=== PATIENT | male | born 1970 | race African-American/Black ===

== ENCOUNTER 2018-12-22 08:55 | Emergency (ER) | payer SELFPAY ==
--- NOTE | 2018-12-22 09:02 | Emergency Department Record ---
History of Present Illness - General Stated Complaint: PAIN IN GROIN Time Seen by Provider: 12/22/18 08:57 Source: Patient Mode of Arrival: Ambulatory Limitations: No limitations - History of Present Illness Initial Comments: 48 yo male presents after a lifting injury at work yesterday. He was lifting a heavy piece of sheet metal (69 pounds) and felt a sharp pain. No current swelling, nausea, vomiting or diarrhea. He is able to urinate. No hematuria. He had prior hernia surgery 6 times when younger. He does frequently lift at work. When he lifted today the pain returned. It is sharp on the left. No back pain. No obvious bulge or current hernia. MD Complaint: Abdominal pain -: Days(s) Location: LLQ Radiation: LLQ Migration to: LLQ Quality: Sharp Consistency: Constant Improves With: Rest Worsens With: Movement, Other (Lifting) Context: Other Associated Symptoms: Denies other symptoms - Related Data Home Medications Medication Instructions Recorded Confirmed Last Taken Amlodipine Besylate [Norvasc] 10 mg PO DAILY 12/22/18 12/22/18 12/21/18 Metoprolol Tartrate 25 mg PO DAILY 12/22/18 12/22/18 12/21/18 Allergies Allergy/AdvReac Type Severity Reaction Status Date / Time cyclobenzaprine Allergy HIVES Verified 12/22/18 09:07 Penicillins Allergy ANAPHYLAXIS Verified 12/22/18 09:07 Review of Systems Constitutional: Denies: Chills, Fever, Malaise, Weakness Eyes: Denies: Eye discharge, Vision change ENT: Denies: Congestion, Throat pain Respiratory: Denies: Cough Cardiovascular: Denies: Chest pain, Palpitations, Syncope Endocrine: Denies: Fatigue Gastrointestinal: Reports: Abdominal pain. Denies: Diarrhea, Nausea, Vomiting Genitourinary: Denies: Dysuria, Frequency, Hematuria Musculoskeletal: Denies: Arthralgia, Back pain, Joint swelling, Myalgia, Neck pain Skin: Denies: Bruising, Change in color, Rash Neurological: Denies: Headache, Numbness, Tingling, Weakness Psychiatric: Denies: Anxiety Hematological/Lymphatic: Denies: Easy bleeding, Easy bruising Physical Exam - General General Appearance: Alert, Oriented x3, Cooperative, No acute distress Limitations: No limitations - Head Head exam: Atraumatic, Normal inspection - Eye Eye exam: Normal appearance, PERRL. negative: Conjunctival injection, Scleral icterus - ENT ENT exam: Normal exam Ear exam: Normal external inspection Nasal Exam: Normal inspection Mouth exam: Normal external inspection - Neck Neck exam: Normal inspection - Respiratory Respiratory exam: Normal lung sounds bilaterally. negative: Respiratory distre ss - Cardiovascular Cardiovascular Exam: Regular rate, Normal rhythm, Normal heart sounds - GI/Abdominal GI/Abdominal exam: Soft, Tenderness (focal reproducible tender at area of external inguinal canal, no definite hernia or bulge with standing or laying. No mass. No testicular tenderness). negative: Distended, Guarding, Hernia, Hypoactive bowel sounds, Rebound, Rigid - Rectal Rectal exam: Deferred - exam: Circumcision, Normal inspection, Other (No scrotal mass or tenderness, no testicle tenderness). negative: Scrotal swelling, Testicular tenderness - Extremities Extremities exam: Normal inspection - Back Back exam: Denies: CVA tenderness (R), CVA tenderness (L) - Neurological Neurological exam: Alert, Oriented X3 - Psychiatric Psychiatric exam: Normal affect, Normal mood. negative: Agitated, Anxious - Skin Skin exam: Dry, Intact, Normal color, Warm Course - Reevaluation(s) Reevaluation #1: 12/22/18 09:26 The patient likely has a small reducible hernia or strain based on examination of tenderness at the eternal canal No scrotal tenderness or swell. No testicle tenderness. His BP was markedly elevated. He has not taken his HTN medication today His Metoprolol and Amlodipine were ordered He has BRIDGER and is being worked up His current baseline BP is about 170/110 He has follow up for the HTN and BRIDGER 12/22/18 09:36 Disposition Disposition: Discharge Clinical Impression: Deep inguinal pain, left Disposition: Home, Self-Care Condition: (1) Good Instructions: Inguinal Hernia (ED) Additional Instructions: No lifting more that 5 pounds next 3-4 days Return or be seen if you have vomiting, fever, trouble with urination or bowel movements Call your doctor for a recheck first of the week if any pain continues Referrals: Jamari Cannon [DOCTOR OF OSTEOPATH] - [facility] [Provider Group] Forms: Patient Portal Access Time of Disposition: 09:23 Quality - Quality Measures Quality Measures: N/A - Blood Pressure Screening Does Patient Have Any of the Following: Active Dx of HTN Blood Pressure Classification: Hypertensive Reading Systolic Measurement: 194 Diastolic Measurement: 131 Screening for High Blood Pressure: Patient Exclusion, Hx of HTN [[id number]]
[2018-12-22] MEDS: AMLODIPINE BESYLATE 5MG TAB PO STA (09:36)
[2018-12-22] MEDS: METOPROLOL TART 25 MG TABLET PO ONE (09:36)
[2018-12-22] MEDS: HYDROCODONE/APAP 5/325MG TABLET PO ONE (09:38)
== END 2018-12-22 09:46 | disposition home or self-care (01) ==
LOC: ER 08:55
DX: G89.11 Acute pain due to trauma (principal); R10.32 Left lower quadrant pain; I10 Essential (primary) hypertension; F17.290 Nicotine dependence, other tobacco product, uncomplicated; X50.0XXA Overexertion from strenuous movement or load, initial encounter; Y92.63 Factory as the place of occurrence of the external cause; Y99.0 Civilian activity done for income or pay
CPT/HCPCS: 99284